=== PATIENT | female | born 1945 | race Caucasian/White ===

== ENCOUNTER → 2017-01-31 | Day surgery (SDC) | payer BC ==
[~2017-01-31] MED LIST: BUPIVACAINE HCL PF 0.25% 30 ML VIAL ONE; LACTATED RINGER'S 1000 ML INJ 1,000 ML ONE; MIDAZOLAM HCL 2 MG/2 ML VIAL ONE; ONDANSETRON HCL 4 MG/2 ML VIAL IV PUSH ONE; PROPOFOL 100 MG/10 ML INJ IV ONE; TRIAMCINOLONE ACETONIDE 40 MG/ML VIAL ONE; ceFAZolin 2 GM PREMIX 50 ML ONE
--- NOTE | 2017-02-01 20:44 | MP ---
cc: SAL KURTZ DPM DATE OF SURGERY: 01/31/2017 PREOPERATIVE DIAGNOSIS Left foot soft tissue mass. POSTOPERATIVE DIAGNOSIS Left foot soft tissue mass however foreign body. SURGEON Sal Kurtz DPM PROCEDURE PERFORMED Excision deep foreign body with exploratory incision and drainage foot. SPECIMEN Wood presumed for routine analysis as well as wound culture. ESTIMATED BLOOD LOSS Less than 30 mL. COMPLICATIONS None. ANESTHESIA General with local 0.25% Marcaine plain. TOURNIQUET TIME 18 minutes at a setting of 215 mmHg. PLAN OF ACTIVITY To PACU then discharge home when stable per Same Day Surgery criteria. JUSTIFICATION FOR PROCEDURE This is a 71-year-old female who initially presented with what appeared to be an abscess on the top of her foot, it was drained however there was no obvious organisms on culture. The abscess then reformed and it was drained again. MRI was performed and there was a diagnosis of ganglion. We advised to plan to move forward with excision of the ganglion. PROCEDURE IN DETAIL Under mild sedation, the patient was brought in the operating room and placed on the operative table in supine position. Following the induction of general anesthesia, local anesthesia was obtained proximal to the level of concern at the level of the left foot. The patient's left foot was then scrubbed, prepped and draped in the usual aseptic fashion. The foot was elevated, exsanguinated and the previously placed mid ankle tourniquet was inflated 215 mmHg, and a linear incision was made over the dorsal aspect of the first metatarsal. Sharp and blunt dissection was carried down to the deep fascia. Upon incising a cyst wall, there appeared to be milky yellow type drainage, this is atypical for a ganglion cyst. However, further incision of the cyst wall took place and exploration and there was noted to be a dark green wood type texture splinter foreign body that was noted to be superficial to periosteum at the medial aspect of the first metatarsal midshaft. There was no obvious communication with bone or deep tissue. It measures approximately 4 mm x 1.5 mm x 1.5 mm. This was then excised and passed off the field for pathological analysis. Deep culture taken utilizing a curette which appeared to be foreign body type reactive tissue, was excised at the level of the periosteum and deep fascia. It did not communicate with the bone, the tendon or peripheral joints. The wound was flushed with copious amounts of normal saline. It was then loosely coapted utilizing nylon. A bulky bandage placed. The patient transferred from OR to PACU with all vital signs stable. Upon relieving the tourniquet, there was a prompt hyperemic response to all digits without any delayed capillary refill time. I will see the patient within 3-5 days, of course we will follow the wound culture. PERRY Vasquez/BJF /4:22 PM /8:05 PM
== END | disposition home or self-care (01) ==
LOC: ESDC 13:08
PROVIDERS: ATTEND Podiatrist Foot & Ankle Surgery
DX: S90.852A Superficial foreign body, left foot, initial encounter (principal)
CPT/HCPCS: 01470; 28192; 87015; 87070; 87102; 87116; 87205; 87206; 88300; J0690; J2250; J2405; J3010; J7120; 87107; J3301